=== PATIENT | female | born 1975 | race Caucasian/White ===

== ENCOUNTER 2020-08-25 00:06 | Day surgery (SDC) | payer OTHER, SELFPAY ==
[2020-05-25 11:35] VITALS: BMI 29.9
[2020-08-13 16:46] VITALS: BMI 29.9
[2020-08-25 06:43] VITALS: BP 131/92; PULSE 86; RESP 14; TEMP 36.3; O2SAT 100
[2020-08-25 07:14] LABS: Glucose Point of Care 106 (65-105)
--- NOTE | 2020-08-25 07:16 | WPDHPUPDATE1 ---
History and Physical Update Update Date/Time: 08/25/20 07:16 History and Physical has been reviewed, including an updated exam of the patient. There are NO changes in the patient's condition. Risks, benefits, and alternatives have been discussed and questions answered. Patient agrees to proceed with procedure.
[2020-08-25] MEDS: LACTATED RINGERS 1,000 ML 30 ML IV CONT ×2 (07:17→10:05)
--- NOTE | 2020-08-25 07:22 | WPDANESEPPF ---
Anes - Initial Pre Proc Eval Procedure: Operation Date: 08/25/20 08:30 Proposed Procedures p Bilateral Breast Implant Exchange, Capsulectomy - George Alejandra MD Date/Time: 08/25/20 07:22 Surgeon: George Alejandra MD Pre Op Diagnosis: bilat breast implant rupture Patient Data Age: 45 Gender: F Height: 5 ft 5 in Weight: 82.35 kg Last Vital Signs Temp 36.3 C L 08/25/20 06:43 Pulse 86 08/25/20 06:43 Resp 14 08/25/20 06:43 BP 131/92 H 08/25/20 06:43 Pulse Ox 100 08/25/20 06:43 Allergies Allergy/AdvReac Type Severity Reaction Status Date / Time Sulfa (Sulfonamide Allergy Unknown rash Verified 08/25/20 06:57 Antibiotics) Home Medications Medication Instructions Recorded Confirmed Type carisoprodol 350 mg tablet 350 mg PO TID PRN #21 tablet 05/21/20 08/25/20 Rx docusate sodium 100 mg capsule 100 mg PO DAILY #14 cap 05/21/20 08/25/20 Rx ondansetron HCl 4 mg tablet 4 mg PO Q8H #28 tablet 05/21/20 08/25/20 Rx oxycodone-acetaminophen 5 mg-325 1 tablet PO Q6H PRN #15 tablet 05/21/20 08/25/20 Rx mg tablet ibuprofen 600 - 800 mg PO Q6H PRN 05/25/20 08/25/20 History semaglutide [Ozempic] 0.5 mg SUBCUT WEEKLY 05/25/20 08/25/20 History Laboratory Tests 08/25/20 07:12 POC Capillary Glucose 106 mg/dl mg/dl (65-105) Patient hx anesthesia problems: none Family hx anesthesia problems: none PMFSH Past Medical History Medical History (Updated 08/25/20 @ 07:22 by Allen Griffin MD) Diabetes Surgical History Surgical History History of hysterectomy Social History Social History Smoking status: Never smoker Alcohol intake: current Drinks per week: 2 Living arrangements: with family Spiritual care concerns: No Anes - Eval Final PreProcedure Day of Procedure 08/25/20 07:22 Patient weight: obese Heart: regular rate and rhythm Lungs: clear to auscultation Airway: Mallampati scale class II Neurological: alert and oriented Last oral intake: >/= 8 hours ASA classification: II Emergent: no Anesthetic plan: proceed Anesthesia type and monitoring: general LMA and standard monitoring Informed Consent: The patient's anesthetic plan and its attendant risks and benefits were discussed with the patient/family/POA. Questions were solicited and answers provided to the satisfaction of the patient/family/POA.
[2020-08-25] MEDS: ceFAZolin 2 GM/D5W 50 ML 2 GM/50 ML BAG IVPB (08:21)
[2020-08-25] MEDS: LIDO 1%/EPINEPHRINE 1:100,000 50 ML VIAL 40 ML INFILTRATE (08:48)
--- NOTE | 2020-08-25 09:48 | SUR.OPER ---
bilateral breast capsules given to dr. curry by donato or [facility] at [id number]
[2020-08-25 10:05] VITALS: BP 124/83; PULSE 94; RESP 12; O2SAT 98
--- NOTE | 2020-08-25 10:17 | PM.PROC ---
Procedure Note - Detailed Date of procedure: 08/25/20 Pre-op diagnosis: bilat breast implant rupture Post-op diagnosis: same Procedure performed: Bilateral breast implant exchange Description of procedure: Patient was marked in the preoperative holding area with her verification. Risks, benefits, alternatives were discussed in extensive detail. I want her to be very realistic about the risks involved as well as expectations. Made sure answered all of her questions to her satisfaction. Consent obtained. She was taken to the operating room placed supine on the operating room table. Anesthesia was provided by anesthesiology. Prepped and draped in a standard sterile fashion. I did a field block with 1% lidocaine and 0.25% Marcaine with epinephrine. Fifteen blade used to excise the previous scars. Dissection was continued down until the capsule was identified. I removed as much of the capsule as I was able to. I irrigated 1st with 3 L of saline solution on TUR tubing. Bilateral breast implants were ruptured. Bilateral breast implants had double capsule just a small portion on the left, a significant portion of the anterior on the right. I then changed gloves. I again irrigated with another 3 L of fresh TUR using bacitracin saline solution. Again changed gloves. Verified the pocket. Copious irrigated with triple antibiotic Betadine solution. Wash my gloves. Using a Caldwell funnel and a no-touch technique the implant was introduced into the pocket. I closed using 2-0 Vicryl followed by 3-0 Monocryl in a running subcuticular 4-0 Monocryl and tissue glue. Awoke and taken to the PACU without difficulty. All instrument sponge counts were correct at the end of the case. Anesthesia: GETA Surgeon: George Alejandra MD Estimated blood loss (mL): 20 Drains: No Packing: No Pathology: yes (Bilateral breast capsules) Complications: No immediate complications Condition: stable Disposition: PACU Findings: Bilateral subtotal capsulectomy Right breast near complete anterior double capsule. Left small area of double capsule. No seroma or masses. Bilateral Natrelle Inspira Soft Touch 345cc Implants Right: Ref [facility]-345 SN [id number] Left: Ref [facility]-345 SN [id number]
[2020-08-25 10:19] LABS: Glucose Point of Care 113 (65-105)
[2020-08-25 10:30] VITALS: BP 118/85; PULSE 72; RESP 12; O2SAT 95
[2020-08-25] MEDS: oxyCODONE HCL (*CRX) 5 MG TAB IR PO (10:35)
[2020-08-25 11:00] VITALS: BP 126/78; PULSE 65; RESP 12
== END 2020-08-25 11:15 | disposition home or self-care (01) ==
PROVIDERS: Visit Provider Surgery Plastic and Reconstructive Surgery
PROC: (CPT 19342; principal; 2020-08-25 08:30)
DX: T85.41XA Breakdown (mechanical) of breast prosthesis and implant, initial encounter (principal); Y83.8 Other surgical procedures as the cause of abnormal reaction of the patient, or of later complication, without mention of misadventure at the time of the procedure; E11.9 Type 2 diabetes mellitus without complications; E66.9 Obesity, unspecified; Z68.30 Body mass index [BMI] 30.0-30.9, adult
CPT/HCPCS: 19325; 19370; 88304; A9270; J0690; J1580; J2250; J2405; J2704; J3010; J7030; J7120